=== PATIENT | male | born 1995 | race Caucasian/White ===

== ENCOUNTER 2019-02-06 00:10 | Emergency (ER) | payer OTHER ==
[~2019-02-06] VITALS: Ht 180.3 cm; Wt 100.0 kg
[2019-02-06 00:11] VITALS: BP 145/85
[2019-02-06] MEDS ORDERED: KETOROLAC 60 MG/2 ML VIAL (J1885) IM ONE (01:00)
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
== END 2019-02-06 02:42 | disposition home or self-care (01) ==
LOC: M ED 00:10
DX: S00.81XA Abrasion of other part of head, initial encounter (principal); S16.1XXA Strain of muscle, fascia and tendon at neck level, initial encounter; V49.49XA Driver injured in collision with other motor vehicles in traffic accident, initial encounter; Y92.410 Unspecified street and highway as the place of occurrence of the external cause
CPT/HCPCS: 70450; 72125; 96372; 99283; J1885